=== PATIENT | female | born 1945 | race Caucasian/White ===

== ENCOUNTER 2019-06-06 06:28 | Day surgery (SDC) | payer MEDICARE, BC ==
[~2019-06-06 06:28] MED LIST: CEFAZOLIN 2 Gram 2 GM/50 ML BAG IVPB ONE; CELECOXIB 100 MG CAPSULE PO ONE; FAMOTIDINE 20MG TABLET PO ONE; MECLIZINE 25 MG TABLET PO ONE; METOCLOPRAMIDE 10 MG TABLET PO ONE; VANCOMYCIN 1GM/200ML PREMIX 1 GM/200 ML PIGGYBACK IVPB ONE
[2019-06-06] MEDS ORDERED: PROPOFOL 10 MG/ML VIAL IV ONE (06:29)
[2019-06-06] MEDS ORDERED: ROPIVACAINE HCL (NAROPIN) /PF 5MG/ML 20ML VIAL IV ONE (06:29)
[2019-06-06] MEDS ORDERED: MIDAZOLAM HCL 2MG/2ML VIAL IV ONE (06:29)
[2019-06-06] MEDS ORDERED: DEXAMETHASONE 4 MG/ML 1ML VIAL IVP ONE (06:29)
[2019-06-06] MEDS ORDERED: LIDOCAINE 2% MDV (20MG/ML) 20ML VIAL IV ONE (06:29)
[2019-06-06] MEDS ORDERED: EPHEDRINE SULFATE 50 MG/ML ML IV ONE (06:29)
[2019-06-06 07:23] LABS: ABO GROUP O; ANTIBODY SCREEN NEGATIVE (NEGATIVE); RH TYPE POSITIVE
[2019-06-06] MEDS ORDERED: RINGERS SOLUTION,LACTATED 1,000 ML IV ONE ×2 (07:50→10:13)
[2019-06-06] MEDS ORDERED: TRANEXAMIC ACID 1,000 MG/10 ML ML IV ONE (09:44)
[2019-06-06] MEDS ORDERED: BUPIVACAINE 0.5% W/EPI MPF 30 ML VIAL IU ONE (09:44)
[2019-06-06] MEDS ORDERED: TRANEXAMIC ACID 1,000 MG/10 ML ML IU ONE (09:44)
[2019-06-06] MEDS ORDERED: AL HYDROX/MAG HYDROX 30ML UD PO PRN (10:56)
[2019-06-06] MEDS ORDERED: DIPHENHYDRAMINE HCL 25 MG CAPSULE PO PRN (10:56)
[2019-06-06] MEDS ORDERED: BISACODYL 10 MG SUPP RC PRN (10:56)
[2019-06-06] MEDS ORDERED: MAGNESIUM HYDROXIDE 30 ML UDC PO PRN (10:56)
[2019-06-06] MEDS ORDERED: NALOXONE 0.4 MG/1 ML VIAL IVP PRN (10:56)
[2019-06-06] MEDS ORDERED: HYDROCODONE/APAP 10/325 TABLET PO PRN (10:56)
[2019-06-06] MEDS ORDERED: TRAMADOL HCL 50 MG TABLET PO PRN (10:56)
[2019-06-06] MEDS ORDERED: ACETAMINOPHEN 325 MG TAB PO PRN (10:56)
[2019-06-06] MEDS ORDERED: ACETAMINOPHEN W/ CODEINE 300MG/60MG TABLET PO PRN ×2 (10:56)
[2019-06-06] MEDS ORDERED: ZOLPIDEM TARTRATE 5 MG TABLET PO PRN (10:56)
[2019-06-06] MEDS ORDERED: KETOROLAC 30 MG/ML VIAL IVP PRN (10:56)
[2019-06-06] MEDS ORDERED: ONDANSETRON HCL IV 4 MG/2 ML VIAL IVP PRN (10:56)
[2019-06-06] MEDS ORDERED: HYDROMORPHONE HCL 2 MG/ML VIAL IM PRN (10:56)
[2019-06-06] MEDS: HYDROCODONE/APAP 10/325 TABLET PO PRN ×2 (12:03→21:57)
[2019-06-06] MEDS: POTASSIUM CHLORIDE/D5-0.9%NACL 20 MEQ/1,000 ML BAG IV SCH ×2 (13:21→20:07)
[2019-06-06] MEDS ORDERED: ALPRAZOLAM 0.25 MG TABLET PO PRN (13:21)
[2019-06-06] MEDS: TMP/SMZ 160MG/800MG TAB PO SCH (13:21)
--- NOTE | 2019-06-06 14:15 | Rehab Evaluation ---
Patient Information - Patient Information Diagnosis: R knee DJD Ordered Treatment: PT Evaluate and Treat Status: Initial Evaluation Past Medical/Surgical Hx: PAST MEDICAL/SURGICAL HISTORY Past Surgical History RIGHT BREAST LUMPECTOMY X'S 2 LEFT BREAST LUMPECTOMY INFUSAPORT LEFT SIDE CHEST BLADDER SUSPENSION EGD TONSILS HYST OOPHERECTOMY FACIAL SX C SCOPES PMH - Respiratory Hx Respiratory Disorders No PMH - Cardiovascular Hx Cardiovascular Disorders No Exercise Tolerance Fair PMH - Neuro Hx Neurological Disorders Yes Hx Headaches Yes: R/T WEATHER PMH - GI Hx Gastrointestinal Disorders Yes Hx Abdominal Pain Yes: LOWER ABDOMINAL PAIN AT TIMES Hx Gastroesophageal Reflux Yes: NO HEARTBURN Comment: CONSTIPATION PMH - Hx Genitourinary Disorders No PMH - Endocrine Hx Endocrine Disorders Yes Hx Thyroid Disease Yes: CANCER PAPILLARY DX'D . WILL BE HAVING THYROIDECTOMY PMH - Musculoskeletal Hx Musculoskeletal Disorders Yes Hx Arthritis Yes: KNEES Hx Fibromyalgia Yes Comment: BURSITIS BILAT SHOULDERS PMH - Psych Hx Psychiatric Problems Yes Hx Anxiety Yes: AT TIMES USUALLY IN THE EVENINGS XANAX PRN PMH - Hematology/Oncology Hx Hematology/Oncology Yes Disorders Hx Cancer Yes: RIGHT BREAST 2015, MANTLE CELL NON HODGKINS LYMPHOMA Hx Chemotherapy Yes: X'S 6 MONTHS FOR LYMPHOMA JUST FINISHED IN MARCH 2019 Hx Radiation Therapy Yes: FOR BREAST CA Premorbid Status: Detail (The patient was independent with all mobility prior to surgery.) Social History: Detail (The patient lives with spouse in a two story house with 3 steps at the enterance and one handrail. The bathroom is equipped with: a walk in shower,hand held shower head, elevated toilet. Grab bars were present by the toilet but not in the shower. The patient has a shower bench and front wheeled walker.) Precautions: [place], Fall, Other (WBAT on the R LE) - Time With Patient Total Time Spent With Patient (Min): 30 Treatment Procedures: Detail (Initial Evaluation, low complexity , gait training.) Subjective Information - Subjective Information Per Patient (The patient has complaints of R knee pain level 4 at the highest using 0-10 pain scale.) Objective Data - Mental Status Patient Orientation: Oriented x3 - Visual Perception Appears within normal limits for therapeutic activities - ROM Not within normal limits (The patient's R knee AROM is limited s/p surgery. All other LE AROM is WNL.) - Strength/Tone Other (The patient's LE strength was not tested s/p surgery however is within functional limits.) - Bed Mobility Independent (The patient was independent with supine to and from sit transfer.) - Transfers Independent (The patient was independent with sit to and from stand transfer and toilet transfer.) - Balance Balance Sitting: Good Balance Standing: Good - Sensation Intact - Gait Detail (The patient ambulated with front wheeled walker WBAT on the R LE a distance of 85 feet x 1 with supervision for safety of 1 and to handle IV.) Therapy Assessment - Therapy Assessment Detail (The patient was independent with bed mobility and transfers and ambulation. Will see pt. for 1 to 2 visits for completion of inpt. PT goals.) Problem List - Problem List Physical Therapy Problem List: Detail (Decreased R knee AROM and R LE strength.) Goals - Goals Physical Therapy Goals: 1) The patient will ambulate on stairs with supervision for safety using proper technique. 2) The patient will be independent with TKA HEP. Plan - Plan Physical Therapy Plan: 1-2 PT sessions for gait training on stairs and instruction in TKA HEP.
[2019-06-06] MEDS: DOCUSATE SODIUM 100 MG CAPSULE PO SCH (17:24)
[2019-06-06] MEDS: CEFAZOLIN 2 Gram 2 GM/50 ML BAG IVPB SCH (17:24)
[2019-06-06] MEDS: POLYETHYLENE GLY 17 GM PACKET PO SCH (17:25)
[2019-06-06] MEDS: ACYCLOVIR 200 MG CAPSULE PO SCH (17:27)
[2019-06-07] MEDS: CEFAZOLIN 2 Gram 2 GM/50 ML BAG IVPB SCH ×2 (00:53→09:05)
[2019-06-07] MEDS: POTASSIUM CHLORIDE/D5-0.9%NACL 20 MEQ/1,000 ML BAG IV SCH (05:59)
[2019-06-07] MEDS: POLYETHYLENE GLY 17 GM PACKET PO SCH (06:03)
[2019-06-07] MEDS: HYDROCODONE/APAP 10/325 TABLET PO PRN ×2 (06:13→10:08)
[2019-06-07 06:41] LABS: HEMATOCRIT 33.6 % (35.0-47.0); HEMOGLOBIN 10.5 gm/dl (11.6-16.0)
[2019-06-07 07:00] LABS: BLOOD UREA NITROGEN 14 mg/dL (8-23); CREATININE 0.9 mg/dL (0.5-0.9); EST GLOMERULAR FILTRATION RATE > 60 mL/min; GLUCOSE,RANDOM 90 mg/dL (74-109)
--- NOTE | 2019-06-07 08:01 | Rehab Evaluation ---
Patient Information - Patient Information Diagnosis: R knee DJD Ordered Treatment: OT Evaluate and Treat Status: Initial Evaluation Surgery: Yes (right TKA) Date of Surgery: 06/06/19 Past Medical/Surgical Hx: PAST MEDICAL/SURGICAL HISTORY Past Surgical History RIGHT BREAST LUMPECTOMY X'S 2 LEFT BREAST LUMPECTOMY INFUSAPORT LEFT SIDE CHEST BLADDER SUSPENSION EGD TONSILS HYST OOPHERECTOMY FACIAL SX C SCOPES PMH - Respiratory Hx Respiratory Disorders No PMH - Cardiovascular Hx Cardiovascular Disorders No Exercise Tolerance Fair PMH - Neuro Hx Neurological Disorders Yes Hx Headaches Yes: R/T WEATHER PMH - GI Hx Gastrointestinal Disorders Yes Hx Abdominal Pain Yes: LOWER ABDOMINAL PAIN AT TIMES Hx Gastroesophageal Reflux Yes: NO HEARTBURN Comment: CONSTIPATION PMH - Hx Genitourinary Disorders No PMH - Endocrine Hx Endocrine Disorders Yes Hx Thyroid Disease Yes: CANCER PAPILLARY DX'D . WILL BE HAVING THYROIDECTOMY PMH - Musculoskeletal Hx Musculoskeletal Disorders Yes Hx Arthritis Yes: KNEES Hx Fibromyalgia Yes Comment: BURSITIS BILAT SHOULDERS PMH - Psych Hx Psychiatric Problems Yes Hx Anxiety Yes: AT TIMES USUALLY IN THE EVENINGS XANAX PRN PMH - Hematology/Oncology Hx Hematology/Oncology Yes Disorders Hx Cancer Yes: RIGHT BREAST 2014, MANTLE CELL NON HODGKINS LYMPHOMA Hx Chemotherapy Yes: X'S 6 MONTHS FOR LYMPHOMA JUST FINISHED IN MARCH 2019 Hx Radiation Therapy Yes: FOR BREAST CA Premorbid Status: Detail (The patient was independent with all mobility, meal prep, laundry and home mgmt tasks prior to surgery. She and spouse shared yard work.) Social History: Detail (The patient lives with spouse in a two story house with 3 steps at the entrance and one handrail. The bathroom is equipped with: a walk in shower,hand held shower head, elevated toilet. Grab bars were present by the toilet but not in the shower. The patient has a shower bench and front wheeled walker.) Precautions: [place], Fall, Other (WBAT on the R LE) - Time With Patient Total Time Spent With Patient (Min): 40 Treatment Procedures: Detail (OT eval low complexity) Subjective Information - Subjective Information Per Patient Objective Data - Pain Pain Present: Yes (3-08/03) - Mental Status Patient Orientation: Oriented x3 - Visual Perception Appears within normal limits for therapeutic activities - ROM Within normal limits (Manuel UE AROM WNL) - Strength/Tone Within normal limits (Manuel UE strength 4+/5 although she reports her arms feel weak at times.) - Coordination Appears within normal limits for therapeutic activities - Bed Mobility Independent (Ind with supine to sit) - Transfers Independent (Ind with sit to stand from EOB, toilet and chair heights.) - Balance Balance Sitting: Good Balance Standing: Good - Sensation Intact - Gait Detail (Pt ambulating in room with 2 wheeled walker and supervision.) - ADL's/IADL's Detail (Pt educated and able to demonstrate learning of modified LE dressing techniques including doffing slipper socks and briefs and donning shani sock (with assist), underwear, pants and tennis shoes. Reviewed kitchen, shower and laundry modifications and safety, pt verbalized understanding.) Therapy Assessment - Therapy Assessment Detail (Pt is Ind with modified LE dressing techniques.) Problem List - Problem List Physical Therapy Problem List: Detail (Decreased R knee AROM and R LE strength.) Occupational Therapy Problem List: Detail (No current IP OT problems identified.) Goals - Goals Physical Therapy Goals: 1) The patient will ambulate on stairs with supervision for safety using proper technique. 2) The patient will be independent with TKA HEP. Occupational Therapy Goals: No current IP OT goals identified. Prognosis - Prognosis Good Plan - Plan Physical Therapy Plan: 1-2 PT sessions for gait training on stairs and instruction in TKA HEP. Occupational Therapy Plan: Pt is discharged from IP OT. Thank you for this referral.
[2019-06-07] MEDS: ACYCLOVIR 200 MG CAPSULE PO SCH (09:04)
[2019-06-07] MEDS: DOCUSATE SODIUM 100 MG CAPSULE PO SCH (09:04)
--- NOTE | 2019-06-07 09:59 | Physical Therapy Tx Note ---
Physical Therapy Tx Note - Treatment Note Tolerated: Good Total Time Spent With Patient: 25 Physical Therapy Tx Note: Detail (Patient was seated in chair upon OPS ANALYST arrival. Patient states her right knee is more sore today than yesterday. Patient transferred sit to and from stand independently. Patient ambulated 488 feet with wheeled walker SBA x1. Patient descended and ascended 3 steps with using stairwell railing. Patient performed the following exercises x5-10 reps in chair: quad sets, glut squeezes, ankle pumps, heel slides, SLR, and hamstring sets. Patient tolerated treatment well. Patient displays good understanding of HEP, stair climbing, and ambulation with walker. Patient was left seated in chair with cryo on knee and call light within reach. Patient discharged from inpatient PT at this time as all goals are met.) Physical Therapy Problem List: Detail (Decreased R knee AROM and R LE strength.) Physical Therapy Goals: 1) The patient will ambulate on stairs with supervision for safety using proper technique. 2) The patient will be independent with TKA HEP. Prognosis: Good Physical Therapy Plan: Patient discharged from inpatient PT at this time as all goals are met.
[2019-06-07] MEDS ORDERED: RIVAROXABAN 10 MG TABLET PO SCH (10:00)
[2019-06-07] MEDS ORDERED: FERROUS SULFATE 325 MG TAB PO SCH (10:00)
[2019-06-07] MEDS: TMP/SMZ 160MG/800MG TAB PO SCH (10:08)
--- NOTE | 2019-06-09 10:52 | Operative Note ---
DATE OF SURGERY: 06/06/2019 PREOPERATIVE DIAGNOSIS: End-stage arthrosis of the right knee. POSTOPERATIVE DIAGNOSIS: End-stage arthrosis of the right knee. OPERATION: Cemented right total knee arthroplasty using [employer] components with a size 5 cobalt chrome Legion femur, a size 4 stemmed tibia baseplate, a 9 mm lipped tibial insert, and a 35 mm all-plastic patella. STAFF SURGEON: Nazario Tellez MD ANESTHESIA: Spinal. PREPARATION: Chloraprep. INDIVIDUAL CONSIDERATIONS: None. PROCEDURE: The patient was taken to the operating room, placed supine on the operating room table. He had a successful induction of a spinal anesthetic. The right lower extremity was prepped and draped in the usual fashion. The patient had a midline approach to the knee. The limb was elevated and tourniquet was inflated to 250 mmHg. Sharp dissection carried down through skin and subcutaneous tissue. Small veins were coagulated with a Bovie. A medial arthrotomy was performed. The patella was everted and the knee was flexed. The patient had exposed bone in both medial and lateral compartments. Fat pad was resected, ACL was sacrificed, and provisional anterior meniscectomies were performed. The capsule was released from the medial proximal tibia. The initial femoral pilot supervisor hole was then made freehand. The intramedullary femoral cutting jig was placed. It was cut in 7.0 degrees of valgus and adjusted for rotation and secured with pins for a 10 mm resection. The initial transverse cut was then made. The skin guide was placed in the anterior and posterior pilot supervisor holes. It was found that a size 5 would be appropriate. It was cut in 3 degrees of external rotation. The pilot supervisor holes were impacted. The anterior and posterior cuts followed by chamfer cuts were made. Osteophytes removed, and a size 5 trial was placed and found to fit well. The tibia was brought forward, and the remainder of the meniscal remnants removed with a Bovie. The extraarticular tibial cutting jig was placed. It was cut in neutral with a 3-degree AP slope. It was set for a 9 mm resection keyed off the high lateral side and secured with pins. When cutting the tibia, care was taken to preserve the PCL insertion on the tibia. After removing osteophytes, I could easily fit a size 4. It was adjusted for rotation and secured with pins. With a 9 mm trial and femoral trial, there was excellent motion and stability. Ligamentous balance and rotation alignment were thought to be normal. Femoral pilot supervisor holes were impacted and the tibial keel stamp was impacted, and these trial components were removed. The patient had a thick patella and roughly 9 mm of bone was removed freehand with an oscillating saw. I could fit a 35 patella, and the 3 pilot supervisor holes were drilled. The tourniquet was let down briefly to get bleeders posteriorly and then placed back up again. The knee was then thoroughly irrigated out with pulsatile Betadine and saline to remove any visual or palpable debris. Bony surfaces were then dried with a CarboJet. A size 4 stemmed tibia baseplate was cemented into place followed by impaction of the 9 mm lipped tibial insert followed by cementing in the size 5 cobalt chrome femur followed by cementing in the 35 mm patella. The implant surfaces were compressed and excess cement was removed. After the cement had set, there was excellent motion and stability. Ligamentous balance, rotation alignment, and patellofemoral tracking were thought to be normal. Again final irrigation with pulsatile Betadine and saline. Tourniquet was let down. Hemostasis was obtained with a Bovie. The capsule, subcu, and periosteum were infiltrated with 30 mL of 0.5% Marcaine with epinephrine. The capsule was then closed with a running #2 quill, subcu was closed with running 0 quill, skin was closed with caridad. Then 1 g of tranexamic acid was mixed with 30 mL of saline and injected into the knee through a sterile 18-gauge needle, and a sterile bulky compressive ROHAN-type dressing was applied. The patient tolerated the procedure well. Needle and sponge counts were correct. Estimated blood loss was minimal, and she was taken back to recovery in good condition. There were no complications. [facility]PITALAlycia
== END 2019-06-07 11:40 | disposition home health service (06) ==
LOC: SUR 06:28 → MEDSURG 11:39 → SUR 06-07 11:40
PROVIDERS: ATTEND Orthopaedic Surgery
DX: M17.11 Unilateral primary osteoarthritis, right knee (principal); Z85.850 Personal history of malignant neoplasm of thyroid; Z85.72 Personal history of non-Hodgkin lymphomas
CPT/HCPCS: 76942; 80048; 85014; 85018; 86850; 86900; 86901; 94010; C1776; J1885; J2405; J3370; J3480; J7120